=== PATIENT | female | born 1990 | race Two or more races ===

== ENCOUNTER 2018-07-09 23:20 | Emergency (ER) | payer SELFPAY ==
[2018-07-09] MEDS ORDERED: predniSONE 20 MG TABLET (UD) PO ONE (23:24)
[2018-07-09] MEDS ORDERED: FAMOTIDINE 20 MG/50 ML IVPB 20 MG/50 ML MG IVPB ONE (23:24)
[2018-07-09] MEDS ORDERED: SODIUM CHLORIDE 1,000 ML IV STA (23:24)
--- NOTE | 2018-07-09 23:31 | PDOC ---
History of Present Illness - General History Source: Patient Exam Limitations: No Limitations - History of Present Illness Initial Comments: 07/09/18 23:37 The patient is a 27 year old female with no significant PMH who presents to the emergency department with an allergic reaction prior to arrival to ED. The patient reports that she had garlic bread with poppy seeds on it for the first time earlier today and began to feel a sensation of her throat closing. She also endorses some nausea and difficulty swallowing. The patient reports other allergies as pomegranate and cabbage but denies eating any of those today. The patient denies any other symptoms. She denies any fever, chills, vomiti, diarrhea, constipation, or urinary symptoms. She denies any chest pain or shortness of breath. The patient denies any headache or dizziness. The patient denies any other complaints. <Sera Hardy - Last Filed: 07/09/18 23:37> - General History Source: Patient Exam Limitations: No Limitations <Kris Jacob - Last Filed: 07/10/18 01:13> - General Chief Complaint: Allergic Reaction Stated Complaint: ALLERGIC REACTION Time Seen by Provider: 07/09/18 23:24 Past History <Sera Hardy - Last Filed: 07/09/18 23:37> <Kris Jacob - Last Filed: 07/10/18 01:13> - Past Medical History Allergies/Adverse Reactions: Allergies Allergy/AdvReac Type Severity Reaction Status Date / Time No Known Allergies Allergy Verified 07/09/18 23:45 Home Medications: Ambulatory Orders Diphenhydramine HCl [Benadryl -] 25 mg PO Q6H PRN #28 capsule 07/10/18 Epinephrine [Epipen 2-Clyde] 0.3 mg IJ ASDIR #1 kit 07/10/18 Prednisone [Deltasone] 60 mg PO DAILY #6 tablet 07/10/18 Review of Systems - Review of Systems Able to Perform ROS?: Yes Comments:: 07/09/18 23:37 GENERAL/CONSTITUTIONAL:(+)allergic reaction. No fever or chills. No weakness. HEAD, EYES, EARS, NOSE AND THROAT: No change in vision. No ear pain or discharge. No sore throat. CARDIOVASCULAR: No chest pain or shortness of breath. RESPIRATORY: No cough, wheezing, or hemoptysis. GASTROINTESTINAL: (+)nausea. No vomiting, diarrhea or constipation. GENITOURINARY: No dysuria, frequency, or change in urination. MUSCULOSKELETAL: No joint or muscle swelling or pain. No neck or back pain. SKIN: No rash NEUROLOGIC: No headache, vertigo, loss of consciousness, or change in strength/ sensation. ENDOCRINE: No increased thirst. No abnormal weight change. HEMATOLOGIC/LYMPHATIC: No anemia, easy bleeding, or history of blood clots. ALLERGIC/IMMUNOLOGIC: No hives or skin allergy. <Sera Hardy - Last Filed: 07/09/18 23:37> *Physical Exam - Physical Exam Comments: 07/09/18 23:38 GENERAL: Awake, alert, and fully oriented, in no acute distress HEAD: No signs of trauma EYES: PERRLA, EOMI, sclera anicteric, conjunctiva clear ENT: Auricles normal inspection, hearing grossly normal, nares patent, oropharynx clear without exudates. Moist mucosa NECK: Normal ROM, supple, no lymphadenopathy, JVD, or masses LUNGS: Breath sounds equal, clear to auscultation bilaterally. No wheezes, and no crackles HEART: Regular rate and rhythm, normal S1 and S2, no murmurs, rubs or gallops ABDOMEN: Soft, nontender, normoactive bowel sounds. No guarding, no rebound. No masses EXTREMITIES: Normal range of motion, no edema. No clubbing or cyanosis. No cords, erythema, or tenderness NEUROLOGICAL: Cranial nerves II through XII grossly intact. Normal speech, normal gait SKIN: Warm, Dry, normal turgor, no rashes or lesions noted. <Sera Hardy - Last Filed: 07/09/18 23:37> Medical Decision Making - Medical Decision Making 07/09/18 23:28 A portion of this note was documented by scribe services under my direction. I have reviewed the details of the note, within reason, and agree with the documentation with the following case summary and management plan written by me. Patient treated in the ED. Nursing notes are reviewed and incorporated into the medical decision-making. Vital signs reviewed. Peripheral IV access obtained by the nurse, laboratory studies are drawn and sent, reviewed and interpreted by myself. 27-year-old female patient with no medical history presents with ALLERGIC reaction to poppyseed's bread. The patient ate this approximate 1 hour ago. Started developing throat sensation closing, nausea, difficult to breathing. Patient came to the ER with partner. No chest pain or shortness of breath. No fainting episodes. No rash. Does report some flushing of the skin. I suspect patient is likely having ALLERGIC reaction. There is no evidence of airway closure or impending airway compromise. We'll initiate Benadryl, Pepcid, IV fluids and prednisone. We'll observe the patient and reassess. 07/10/18 01:07 The patient has been observed and feeling quite well. She is without symptoms. Will discharge patient home with a prescription for prednisone and benadryl and epinephrine. Patient will go home with her partner. I discussed the physical exam findings, ancillary test results and final diagnoses with the patient. I answered all of the patient's questions. The patient was satisfied with the care received and felt comfortable with the discharge plan and treatment plan. The patient will call their primary care physician within 24 hours to arrange follow-up and will return to the Emergency Department with any new, persistant or worsening symptoms. <Kris Jacob - Last Filed: 07/10/18 01:13> *DC/Admit/Observation/Transfer - Attestations Scribe Attestion: 07/09/18 23:38 Documentation prepared by Sera Hardy, acting as ophthalmic medical technologist for Kris Jacob MD. <Sera Hardy - Last Filed: 07/09/18 23:37> - Discharge Dispostion Decision to Admit order: No <Kris Jacob - Last Filed: 07/10/18 01:13> Diagnosis at time of Disposition: Allergic reaction Qualifiers: Encounter type: initial encounter Qualified Code(s): T78.40XA - Allergy, unspecified, initial encounter - Discharge Dispostion Disposition: HOME Condition at time of disposition: Stable - Prescriptions Prescriptions: Diphenhydramine HCl [Benadryl -] 25 mg PO Q6H PRN #28 capsule PRN Reason: Allergic Reaction Epinephrine [Epipen 2-Clyde] 0.3 mg IJ ASDIR #1 kit Prednisone [Deltasone] 60 mg PO DAILY #6 tablet - Referrals Referrals: Yaya Hodges MD [Staff Physician] - - Patient Instructions Printed Discharge Instructions: DI for General Allergic Reactions Additional Instructions: Please take the prednisone as prescribed for the next two days. For additional relief, take a tablet of benadryl every 6 hours as needed. If you ever have difficulty breathing or throat swelling, please use an epi-pen and come to the ER. Please make an appointment with an hospice manager. Call to schedule an appointment.
[2018-07-09 23:52] VITALS: BMI 24.7
[2018-07-10 00:57] VITALS: BP 120/69; PULSE 88
== END 2018-07-10 01:24 | disposition home or self-care (01) ==
LOC: FER 23:20
PROC: 3E033GC Introduction of Other Therapeutic Substance into Peripheral Vein, Percutaneous Approach (ICD-10-PCS; principal; 2018-07-09)
PROC: 3E0337Z Introduction of Electrolytic and Water Balance Substance into Peripheral Vein, Percutaneous Approach (ICD-10-PCS; 2018-07-09)
DX: T78.40XA Allergy, unspecified, initial encounter (principal)
CPT/HCPCS: 99282-25; J7030